=== PATIENT | female | born 1995 | race Caucasian/White ===

== ENCOUNTER 2020-11-18 18:54 | Emergency (ER) | payer MEDICAID ==
[~2020-11-18] VITALS: Ht 157.5 cm; Wt 54.0 kg
[2020-11-18] MEDS ORDERED: KETOROLAC 60MG/2ML VIAL IM ONE (19:30)
[2020-11-18 21:22] VITALS: BP 135/82
[2020-11-18] MEDS ORDERED: IBUP-2028 MT (22:05)
[2020-11-18] MEDS ORDERED: METH-773 MT (22:05)
== END 2020-11-18 22:30 | disposition home or self-care (01) ==
LOC: ER 18:54
DX: M54.2 Cervicalgia (principal); M54.6 Pain in thoracic spine
CPT/HCPCS: 72125; 72128; 81025; 96372; 99285; J1885

== ENCOUNTER 2024-05-14 19:24 | Emergency (ER) | payer MEDICAID ==
[~2024-05-14] VITALS: Ht 157.5 cm; Wt 58.0 kg
[~2024-05-14 19:24] MED LIST: IBUP-2028 MT; METH-773 MT
[2024-05-14 19:31] VITALS: TEMP 97.8; O2SAT 99
[2024-05-14 19:33] VITALS: BP 141/68; PULSE 63; RESP 15; O2SAT 98
[2024-05-14 19:52] LABS: CLARITY URINE CLEAR (CLEAR); COLOR URINE YELLOW (YELLOW); GLUCOSE URINE NEGATIVE (NEGATIVE); KETONES URINE NEGATIVE (NEGATIVE); LEUKOCYTE ESTERASE URINE NEGATIVE (NEGATIVE); NITRITE URINE NEGATIVE (NEGATIVE); OCCULT BLOOD URINE NEGATIVE (NEGATIVE); PH URINE 6.5 (4.5-8.0); PROTEIN URINE NEGATIVE (NEGATIVE); SPECIFIC GRAVITY URINE 1.011 (1.005-1.030)
[2024-05-14 21:04] LABS: BASOPHILS % 0.5 % (0.0-2.0); EOSINOPHILS % 2.4 % (0.0-5.0); HEMATOCRIT. 37.7 % (36.0-48.0); LYMPHOCYTES % 37.1 % (20.0-50.0); MEAN CORPUSCULAR HGB CONC 34.6 g/dL (31.0-37.0); MEAN CORPUSCULAR VOLUME 89.6 fL (81.0-99.0); MEAN PLATELET VOLUME 8.9 fl (7.4-10.4); MONOCYTES % 5.2 % (2.0-8.0); NEUTROPHILS % 54.8 % (40.0-76.0); PLATELET 301 x1000/uL (130-400); RED BLOOD CELL COUNT 4.21 mill/uL (4.2-5.4); RED CELL DISTRIBUTION WIDTH 12.8 % (11.6-14.6); WHITE BLOOD COUNT 8.4 x1000/uL (4.5-11.0)
[2024-05-14 21:07] LABS: CHLORIDE 108 mEq/L (98-107); POTASSIUM 3.8 mEq/L (3.5-5.1); SODIUM 141 mEq/L (136-145)
[2024-05-14 21:09] LABS: CALCIUM 9.2 mg/dL (8.7-10.4); CARBON DIOXIDE 28 mEq/L (21-32)
[2024-05-14 21:13] LABS: CREATININE 0.8 mg/dL (0.6-1.0)
[2024-05-14 21:14] LABS: GLUCOSE 96 mg/dL (70-105); UREA NITROGEN BLOOD 10 mg/dL (9-23)
[2024-05-14] MEDS ORDERED: ACETAMINOPHEN 325MG TABLET PO ONE (22:00)
[2024-05-14 22:55] LABS: ALANINE AMINOTRANSFERASE 10 IU/L (10-49); ALBUMIN 4.4 g/dL (3.2-4.8); ASPARTATE AMINOTRANSFERASE 19 IU/L (<34); BILIRUBIN DIRECT 0.1 mg/dL (<=3.0); BILIRUBIN TOTAL 0.5 mg/dL (0.1-1.0); PROTEIN TOTAL 7.2 g/dL (6.0-8.3)
== END 2024-05-14 22:35 | disposition left against medical advice (07) ==
LOC: ER 19:24
DX: R10.32 Left lower quadrant pain (principal); N89.8 Other specified noninflammatory disorders of vagina
CPT/HCPCS: 36415; 80048; 80076; 81003; 85025; 99283

== ENCOUNTER 2025-01-30 22:52 | Emergency (ER) | payer MEDICAID, OTHER ==
[~2025-01-30] VITALS: Ht 157.5 cm; Wt 56.4 kg
[2025-01-30 23:05] VITALS: O2SAT 98
[2025-01-31] MEDS ORDERED: DEXAMETHASONE 1MG TABLET PO ONE
[2025-01-31] MEDS: FAMOTIDINE 20MG TABLET PO ONE (00:28)
[2025-01-31] MEDS: DEXAMETHASONE 4MG TABLET PO SCH (00:28)
[2025-01-31] MEDS ORDERED: DIPH25TA62 MT (00:32)
[2025-01-31] MEDS ORDERED: EPIN0.3P3 IM (00:32)
[2025-01-31] MEDS: DIPHENHYDRAMINE 25MG CAPSULE PO ONE (00:38)
[2025-01-31 00:41] VITALS: BP 112/73; PULSE 61; RESP 16; TEMP 36.7; O2SAT 98
== END 2025-01-31 00:49 | disposition home or self-care (01) ==
LOC: ER 22:52
DX: T78.40XA Allergy, unspecified, initial encounter (principal); L50.9 Urticaria, unspecified; Z79.52 Long term (current) use of systemic steroids; Z79.899 Other long term (current) drug therapy; Y92.89 Other specified places as the place of occurrence of the external cause
CPT/HCPCS: 99284; J8540; Q0163

== ENCOUNTER 2025-05-15 00:44 | Emergency (ER) | payer OTHER, MEDICAID ==
[~2025-05-15] VITALS: Ht 157.5 cm; Wt 57.0 kg
[~2025-05-15 00:44] MED LIST changes: +DIPH25TA62 MT; +EPIN0.3P3 IM
[2025-05-15 00:48] VITALS: O2SAT 95
[2025-05-15 02:22] LABS: HEMATOCRIT. 37.4 % (36.0-48.0); HEMOGLOBIN. 12.9 g/dL (12.0-16.0); MEAN PLATELET VOLUME 8.9 fl (7.4-10.4); PLATELET 264 x1000/uL (130-400); RED BLOOD CELL COUNT 4.20 mill/uL (4.2-5.4); RED CELL DISTRIBUTION WIDTH 13.0 % (11.6-14.6)
[2025-05-15] MEDS: KETOROLAC 30MG/ML VIAL IM ONE (02:31)
[2025-05-15] MEDS: ACETAMINOPHEN 500MG TABLET PO ONE (02:31)
[2025-05-15 02:37] LABS: CREATININE 0.7 mg/dL (0.6-1.0)
[2025-05-15 02:38] LABS: UREA NITROGEN BLOOD 13 mg/dL (9-23)
[2025-05-15 02:42] LABS: CLARITY URINE CLEAR (CLEAR); COLOR URINE YELLOW (YELLOW); GLUCOSE URINE NEGATIVE (NEGATIVE); KETONES URINE NEGATIVE (NEGATIVE); LEUKOCYTE ESTERASE URINE 2+ (NEGATIVE); NITRITE URINE NEGATIVE (NEGATIVE); OCCULT BLOOD URINE 1+ (NEGATIVE); PH URINE 6.0 (4.5-8.0); PROTEIN URINE NEGATIVE (NEGATIVE); SPECIFIC GRAVITY URINE 1.010 (1.005-1.030); UROBILINOGEN URINE 0.2 E.U./dL (0.2-1.0)
[2025-05-15] MEDS ORDERED: IBUP-2028 MT (02:52)
[2025-05-15] MEDS ORDERED: NITR-87 MT (02:52)
[2025-05-15 02:57] VITALS: BP 97/59; PULSE 81; RESP 16; TEMP 36.9; O2SAT 99
[2025-05-15] MEDS ORDERED: NITROFURANTOIN 100MG M/M CAPSULE PO ONE (03:00)
[2025-05-15 03:03] LABS: BACTERIA URINE 1+; SQUAMOUS EPITHELIAL CELL URINE 1+ /lpf (RARE/1+); WBC URINE 25-50 /hpf (0-2)
[2025-05-15 09:27] LABS: BAND% 4.0 % (1.0-6.0); LYMPHOCYTES % MANUAL 6.0 % (20.0-60.0); MONOCYTES % MANUAL 2.0 % (2.0-8.0); NEUTROPHILS % MANUAL 88.0 % (45.0-75.0); PLATELET ESTIMATE NORMAL
== END 2025-05-15 03:02 | disposition home or self-care (01) ==
LOC: ER 01:25
DX: N39.0 Urinary tract infection, site not specified (principal); M54.50 Low back pain, unspecified; Z79.899 Other long term (current) drug therapy
CPT/HCPCS: 99283; 80048; 81003; 81025; 85025; 87086; 87186; 87077; 36415; 96372; J1885